=== PATIENT | male | born 1950 | race Caucasian/White ===

== ENCOUNTER → 2016-06-26 | Outpatient (CLI) | payer MEDICARE, OTHER ==
--- NOTE | 2016-06-26 09:49 | RAD ---
EXAM DESCRIPTION: Left shoulder series. CLINICAL HISTORY: Left shoulder pain. COMPARISON: None. TECHNIQUE: Three views of the shoulder were acquired. FINDINGS: Trans axillary view demonstrates a few osteophytes noted about the humeral head. This is compatible with degenerative change. These are not well visualized on the AP radiograph. No fracture noted. 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 Electronically signed by: Klever Saldana MD 06/26/2016 09:47
== END ==
LOC: RAD 09:21
PROVIDERS: ATTEND Orthopaedic Surgery
DX: M25.512 Pain in left shoulder (principal); M12.812 Other specific arthropathies, not elsewhere classified, left shoulder